=== PATIENT | female | born 1980 | race Caucasian/White ===

== ENCOUNTER 2021-06-09 13:52 | Outpatient (CLI) | payer OTHER ==
[2021-06-10 15:31] LABS: SARS-CoV-2 PCR by NAA Not Detected (NotDetected)
== END 2021-06-09 13:53 | disposition home or self-care (01) ==
LOC: CSHLAB 13:52
PROVIDERS: ATTEND Obstetrics & Gynecology
DX: Z20.822 Contact with and (suspected) exposure to COVID-19 (principal)
CPT/HCPCS: U0003; U0005

== ENCOUNTER 2021-06-13 19:15 | Inpatient (IN) | payer OTHER ==
[~2021-06-13 19:15] MED LIST: Bupivacaine 0.25% HCL 30 ML VIAL ONE
[2021-06-13] MEDS ORDERED: Diphenoxylate HCl/Atropine Tablet PO PRN ×2 (20:14)
[2021-06-13] MEDS ORDERED: Lidocaine 1% (PF) 30 ML VIAL SC PRN (20:14)
[2021-06-13] MEDS ORDERED: Butorphanol Tartrate 1 MG/ML VIAL SLOW IVP PRN (20:14)
[2021-06-13] MEDS ORDERED: hydrALAZINE 20 MG/ML VIAL SLOW IVP PRN (20:14)
[2021-06-13] MEDS ORDERED: Acetaminophen 500 MG TAB PO PRN (20:14)
[2021-06-13] MEDS ORDERED: Zolpidem Tartrate 5 MG TAB PO PRN (20:14)
[2021-06-13] MEDS ORDERED: Promethazine HCl 25 MG/ML VIAL IM PRN (20:14)
[2021-06-13] MEDS ORDERED: Ibuprofen 800 MG TAB PO PRN (20:14)
[2021-06-13] MEDS ORDERED: HYDROcodone/Acetaminophen 5/325 mg Tablet PO PRN ×2 (20:14)
[2021-06-13] MEDS ORDERED: Misoprostol 200 MCG TAB PR PRN (20:14)
[2021-06-13] MEDS ORDERED: Ondansetron PF 4 MG/2 ML Vial IVP PRN (20:14)
[2021-06-13] MEDS ORDERED: Docusate 100 MG CAP PO PRN (20:14)
[2021-06-13] MEDS ORDERED: NS w/ Oxytocin 30 units 500 ML IV SCH ×2 (20:15→20:30)
[2021-06-13] MEDS: Lactated Ringer's 1,000 ML IV SCH (20:25)
[2021-06-13 20:28] VITALS: BMI 28.8
[2021-06-13] MEDS ORDERED: CEFAZOLIN 2 GM in Premix Bag 1 BAG IVPB SCH (20:30)
[2021-06-13] MEDS ORDERED: NS w/ Oxytocin 30 units 500 ML IVPB SCH (20:30)
[2021-06-13] MEDS ORDERED: Misoprostol 100 MCG TAB VAG SCH (20:30)
[2021-06-13] MEDS ORDERED: Simethicone Chewable 80 MG TAB PO PRN (21:09)
[2021-06-13 21:30] LABS: Hemoglobin 11.7 g/dL (12.0-15.5); Mean Corpuscular Hemoglobin 36.1 pg (27.0-33.0); Mean Corpuscular Volume 106.2 fl (81.6-98.3); Mean Platelet Volume 10.2 fl (7.4-10.4); Platelet Count 198 10x3/uL (150-450); RBC Distribution Width 14.7 % (11.5-14.5); Red Blood Cell (RBC) Count 3.24 10x6/uL (3.90-5.03); White Blood Cell (WBC) Count 8.3 10x3/uL (3.5-10.5)
[2021-06-13] MEDS: Clindamycin/D5W 900 MG in Premix Bag 1 BAG IVPB SCH (21:30)
[2021-06-13 22:01] LABS: HIV (1/2) Antibody/Antigen Non-Reactive (NonReactive); HIV 1/2 INDEX 0.15 S/CO (<1.00); Hep B Surf Ag Non-Reactive S/CO (NonReactive)
[2021-06-13 22:02] LABS: Syphilis Antibody Nonreactive (Nonreactive); Syphilis Antibody Index 0.03 S/CO (<1.00 Non-Reactive)
[2021-06-13 22:09] LABS: HBSAg Index 0.21 S/CO (0-0.99)
[2021-06-14] MEDS ORDERED: Fentanyl 2 mcg/Bup 0.1% Cadd 100 ML ONE (02:02)
[2021-06-14] MEDS ORDERED: Lactated Ringer's 500 ML IV PRN (02:52)
[2021-06-14] MEDS ORDERED: Promethazine HCl 25 MG/ML VIAL IM PRN (02:52)
[2021-06-14] MEDS ORDERED: Naloxone HCl 0.4 mg/ml Vial IVP PRN ×2 (02:52)
[2021-06-14] MEDS ORDERED: ePHEDrine Sulfate 50 MG/10 ML VIAL SLOW IVP PRN (02:52)
[2021-06-14] MEDS ORDERED: diphenhydrAMINE 50 MG/ML VIAL IVP PRN (02:52)
[2021-06-14] MEDS ORDERED: Acetaminophen 325 MG TAB PO PRN (02:52)
[2021-06-14] MEDS ORDERED: Hydrocerin (Eucerin) Cream 120 gm Jar TOP PRN (02:52)
[2021-06-14] MEDS ORDERED: Ondansetron PF 4 MG/2 ML Vial IVP PRN ×2 (02:52→09:43)
[2021-06-14] MEDS ORDERED: Fentanyl 2 mcg/Bupivacaine 0.1% Cassette 100 ML EPIDURAL SCH (03:00)
[2021-06-14] MEDS ORDERED: Communication Order-Pharmacy FS SCH (03:00)
[2021-06-14] MEDS: Clindamycin/D5W 900 MG in Premix Bag 1 BAG IVPB SCH ×2 (03:11→09:02)
[2021-06-14] MEDS: Lactated Ringer's 1,000 ML IV SCH (03:14)
[2021-06-14] MEDS ORDERED: Bisacodyl 10 MG SUPP PR PRN (09:43)
[2021-06-14] MEDS ORDERED: Milk Of Magnesia 30 ML UDCUP PO PRN (09:43)
[2021-06-14] MEDS ORDERED: Lanolin Ointment 7 GM TUBE TOP PRN (09:43)
[2021-06-14] MEDS ORDERED: hydrALAZINE 20 MG/ML VIAL SLOW IVP PRN (09:43)
[2021-06-14] MEDS ORDERED: diphenhydrAMINE 25 MG CAP PO PRN (09:43)
[2021-06-14] MEDS ORDERED: Benzocaine-Menthol 82.5 ML CAN TOP PRN (09:43)
[2021-06-14] MEDS ORDERED: Preparation H Ointment 28 GM TUBE PR PRN (09:43)
[2021-06-14] MEDS ORDERED: HYDROcodone/Acetaminophen 5/325 mg Tablet PO PRN (09:43)
[2021-06-14] MEDS ORDERED: Misoprostol 200 MCG TAB VAG PRN (09:43)
[2021-06-14] MEDS ORDERED: Zolpidem Tartrate 5 MG TAB PO PRN (09:43)
[2021-06-14] MEDS ORDERED: Witch Hazel-Glycerin 1 EACH JAR TOP PRN (09:45)
[2021-06-14] MEDS ORDERED: NS w/ Oxytocin 30 units 500 ML IV SCH (09:45)
[2021-06-14] MEDS: Ibuprofen 800 MG TAB PO SCH ×2 (12:22→20:30)
[2021-06-14] MEDS: Ferrous Sulfate 325 MG TAB PO SCH (16:00)
[2021-06-14] MEDS: HYDROcodone/Acetaminophen 5/325 mg Tablet PO PRN ×2 (16:23→20:30)
[2021-06-14] MEDS: Docusate Calcium (SURFAK) 240 MG CAP PO SCH (20:30)
[2021-06-15 04:45] LABS: Hemoglobin 10.6 g/dL (12.0-15.5); Mean Corpuscular HGB CONC 33.2 g/dL (32.0-36.0); Mean Corpuscular Hemoglobin 35.9 pg (27.0-33.0); Mean Corpuscular Volume 108.1 fl (81.6-98.3); Platelet Count 140 10x3/uL (150-450); RBC Distribution Width 14.6 % (11.5-14.5); Red Blood Cell (RBC) Count 2.95 10x6/uL (3.90-5.03); White Blood Cell (WBC) Count 6.9 10x3/uL (3.5-10.5)
[2021-06-15] MEDS: Ibuprofen 800 MG TAB PO SCH (05:15)
[2021-06-15] MEDS: HYDROcodone/Acetaminophen 5/325 mg Tablet PO PRN (07:28)
[2021-06-15] MEDS: Docusate Calcium (SURFAK) 240 MG CAP PO SCH (07:28)
[2021-06-15] MEDS: Ferrous Sulfate 325 MG TAB PO SCH (07:30)
[2021-06-15 07:41] VITALS: BP 113/54; TEMP 97.8
[2021-06-15] MEDS ORDERED: Prenatal Vitamin 1 TAB PO SCH (09:00)
[2021-06-15] MEDS ORDERED: Boostrix 0.5 ML (Tdap) VIAL IM ONE (09:43)
== END 2021-06-15 12:34 | disposition home or self-care (01) | DRG 807 ==
LOC: CSHLD 19:31 → CSHPED 06-14 13:45
PROVIDERS: ADMIT Obstetrics & Gynecology; ATTEND Obstetrics & Gynecology
PROC: 10E0XZZ Delivery of Products of Conception, External Approach (ICD-10-PCS; principal; 2021-06-13)
PROC: 10907ZC Drainage of Amniotic Fluid, Therapeutic from Products of Conception, Via Natural or Artificial Opening (ICD-10-PCS; 2021-06-14)
DX: O99.824 Streptococcus B carrier state complicating childbirth (principal); Z37.0 Single live birth; O80 Encounter for full-term uncomplicated delivery; Z3A.38 38 weeks gestation of pregnancy; O99.62 Diseases of the digestive system complicating childbirth; K21.9 Gastro-esophageal reflux disease without esophagitis
CPT/HCPCS: 36415; 51702; 85027; 86780; 86850; 86900; 86901; 87340; 87389; J2590; J3490; J7120; S0020

== ENCOUNTER 2022-08-13 14:06 | Outpatient (CLI) | payer BC | END 2022-08-13 14:07 | disposition home or self-care (01) | LOC: CSHMAMMO 14:06 | PROVIDERS: ATTEND Obstetrics & Gynecology | DX: Z12.31 Encounter for screening mammogram for malignant neoplasm of breast (principal) | CPT/HCPCS: 77063; 77067 ==

== ENCOUNTER 2023-09-23 | Outpatient (CLI) | payer BC | END 2023-09-23 08:11 | disposition home or self-care (01) | DX: Z12.31 Encounter for screening mammogram for malignant neoplasm of breast (principal) ==